=== PATIENT | male | born 1955 | race American Indian/Alaskan Native ===

== ENCOUNTER 2021-08-02 00:19 | Inpatient (IN) | payer BC ==
--- NOTE | 2021-08-02 00:30 | Emergency Department Report ---
HPI - General Time Seen by Provider: 08/02/21 00:21 - [facility] HPI: Room 20 The patient is a 66-year-old male present with a chief complaint of shortness of breath. Per EMS they received a call for difficulty breathing. Upon their arrival patient was awake and exhibiting increased work of breathing. While with EMS they report the patient lost his pulse/went to respiratory arrest and ACLS protocols were initiated. EMS states he was not on the monitor when he lost his pulse was original rhythm was unknown. Per EMS 2 rounds of CPR were performed with return of spontaneous circulation. Patient initially had a Loco airway in place but upon regaining his pulse this was removed. Upon arrival to the ED the patient is diaphoretic but answering questions appropriately satting 97% with supplemental O2. Patient denied ever having chest pain states he just felt short of breath. The patient's reported the patient has been coughing for the past few days. The patient states he has been vaccinated against Covid receiving 2 doses ED Past Medical Hx - Past Medical History Hx Hypertension: Yes Hx Asthma: Yes - Surgical History Past Surgical History?: No - Family History Family history: no significant - Social History Smoking Status: Never Smoker Substance Use Type: None (Denies illicit drug use), Alcohol ED Review of Systems ROS: Stated complaint: CARDIAC ARREST Other details as noted in HPI Constitutional: denies: fever Eyes: denies: eye pain ENT: denies: throat pain Respiratory: cough, shortness of breath Cardiovascular: denies: chest pain Endocrine: no symptoms reported Gastrointestinal: denies: abdominal pain Genitourinary: denies: dysuria Musculoskeletal: denies: back pain Neurological: denies: headache Physical Exam - Physical Exam Physical Exam: GENERAL: The patient is well-developed well-nourished male diaphoretic on stretcher. [] HEENT: Normocephalic. Atraumatic. Extraocular motions are intact. Patient has moist mucous membranes. NECK: Supple. Trachea midline CHEST/LUNGS: Diffuse wheezing. There is no respiratory distress noted. HEART/CARDIOVASCULAR: Regular. There is no tachycardia. There is no gallop rub or murmur. ABDOMEN: Abdomen is soft, nontender. Patient has normal bowel sounds. There is no abdominal distention. SKIN: There is no rash. There is no edema. There is diaphoresis. NEURO: The patient is awake, alert, and oriented. The patient is cooperative. The patient has no focal neurologic deficits. The patient has normal speech. GCS 15 MUSCULOSKELETAL: There is no evidence of acute injury. ED Medical Decision Making - Lab Data Result diagrams: 08/02/21 00:35 08/02/21 00:35 Laboratory Tests 08/02/21 08/02/21 08/02/21 00:35 00:35 00:35 WBC 7.5 RBC 5.59 H Hgb 14.5 Hct 46.4 H MCV 83 L MCH 26 L MCHC 31 L RDW 16.0 H Plt Count 151 Lymph % (Auto) Mat Cutter Seg Neutrophils % Mat Cutter ABG pH ABG pCO2 ABG pO2 ABG HCO3 ABG O2 Saturation ABG O2 Content ABG Base Excess ABG Hemoglobin ABG Carboxyhemoglobin ABG Methemoglobin Oxyhemoglobin FiO2 Sodium 141 Potassium 3.9 Chloride 103.4 Carbon Dioxide 18 L Anion Gap 24 BUN 18 Creatinine 1.7 H Estimated GFR 49 BUN/Creatinine Ratio 11 Glucose 247 H Lactic Acid 3.40 H* Calcium 8.4 Total Creatine Kinase 587 H CK-MB (CK-2) 4.4 H CK-MB (CK-2) Rel Index 0.7 Troponin T < 0.010 NT-Pro-B Natriuret Pep 219.9 Urine Opiates Screen Urine Methadone Screen Ur Barbiturates Screen Ur Phencyclidine Scrn Ur Amphetamines Screen U Benzodiazepines Scrn Urine Cocaine Screen U Marijuana (THC) Screen Drugs of Abuse Note 08/02/21 08/02/21 00:40 Unknown WBC RBC Hgb Hct MCV MCH MCHC RDW Plt Count Lymph % (Auto) Seg Neutrophils % ABG pH 7.272 L ABG pCO2 50.8 ABG pO2 174.2 H ABG HCO3 22.9 ABG O2 Saturation 99.0 ABG O2 Content 20.4 ABG Base Excess -4.4 L ABG Hemoglobin 14.7 ABG Carboxyhemoglobin 1.0 ABG Methemoglobin 0.5 Oxyhemoglobin 97.5 FiO2 36 Sodium Potassium Chloride Carbon Dioxide Anion Gap BUN Creatinine Estimated GFR BUN/Creatinine Ratio Glucose Lactic Acid Calcium Total Creatine Kinase CK-MB (CK-2) CK-MB (CK-2) Rel Index Troponin T NT-Pro-B Natriuret Pep Urine Opiates Screen Presumptive positive Urine Methadone Screen Presumptive negative Ur Barbiturates Screen Presumptive negative Ur Phencyclidine Scrn Presumptive negative Ur Amphetamines Screen Presumptive negative U Benzodiazepines Scrn Presumptive negative Urine Cocaine Screen Presumptive negative U Marijuana (THC) Screen Presumptive negative Drugs of Abuse Note Disclamer - EKG Data -: EKG Interpreted by Me EKG shows normal: sinus rhythm Rate: tachycardia (103 beats per) - EKG Data When compared to previous EKG there are: previous EKG unavailable Interpretation: other (No ischemic changes seen) - Radiology Data Radiology results: report reviewed (Chest X), image reviewed (Chest x-ray) interpreted by me: Chest x-ray-no definite focal infiltrates, no pneumothorax [facility] [address] [place] [address] XRay Report Signed Patient: ANICETO FRANCO MR#: [id number] : 1955 Acct:[id number] Age/Sex: 66 / M ADM Date: 08/02/21 Loc: ED Attending Dr: Ordering Physician: APPLE ALLEN MD Date of Service: 08/02/21 Procedure(s): XR chest 1V ap Accession Number(s): [id number] cc: APPLE ALLEN MD Fluoro Time In Minutes: CHEST 1 VIEW INDICATION / CLINICAL INFORMATION: Shortness of breath. COMPARISON: Chest x-ray 01/10/2011 FINDINGS: SUPPORT DEVICES: None. HEART / MEDIASTINUM: No significant abnormality. LUNGS / PLEURA: No significant pulmonary or pleural abnormality. No pneumothorax. ADDITIONAL FINDINGS: No significant additional findings. IMPRESSION: 1. No active cardiopulmonary disease. Signer Name: Elisha Pascal II, MD Signed: 08/02/2021 1:10 AM Workstation Name: [id number] Transcribed By: PATY Dictated By: ELISHA PASCAL II, MD Electronically Authenticated By: ELISHA PASCAL II, MD Signed Date/Time: 08/02/21109 DD/ 8 TD/TT: - Differential Diagnosis Asthma exacerbation, respiratory arrest Critical care attestation.: If time is entered above; I have spent that time in minutes in the direct care of this critically ill patient, excluding procedure time. ED Disposition Clinical Impression: Acute asthma exacerbation, Respiratory arrest Disposition: ADMITTED INPATIENT Is pt being admited?: Yes Does the pt Need Aspirin: Yes Condition: Fair Time of Disposition: 02:06 (Hospitalist called (Dr Hollingsworth))
[2021-08-02] MEDS ORDERED: IPRATROPIUM 0.02% NEBU 2.5 ML IH ONE ×2 (00:35→01:21)
[2021-08-02] MEDS ORDERED: ALBUTEROL 2.5 MG/3 ML NEBU IH ONE ×2 (00:35→01:21)
[2021-08-02 00:56] LABS: ABG Base Excess -4.4 mmol/L (-2.0-3.0); ABG HCO3 22.9 mmol/L (20.0-26.0); ABG Methemoglobin 0.5 % (0.0-1.5); ABG PCO2 50.8 mm Hg; ABG PH 7.272 pH Units (7.350-7.450); ABG PO2 174.2 mm Hg (80.0-90.0)
[2021-08-02 01:08] LABS: Amphetamine Screen,Urine PRESUMPTIVE NEGATIVE; Benzodiazepines Screen,Urine PRESUMPTIVE NEGATIVE; Cannabinoid Screen,Urine PRESUMPTIVE NEGATIVE; Cocaine Screen,Urine PRESUMPTIVE NEGATIVE; Methadone Screen,Urine PRESUMPTIVE NEGATIVE; Opiate Screen,Urine PRESUMPTIVE POSITIVE
[2021-08-02 01:12] LABS: Creatine Kinase MB 4.4 ng/mL (0.0-4.0)
[2021-08-02 01:13] LABS: BUN/Creatinine Ratio 11; Blood Urea Nitrogen 18 mg/dL (9-20); Calcium 8.4 mg/dL (8.4-10.2); Hemolysis Index 10
--- NOTE | 2021-08-02 01:14 | XRay Report ---
CHEST 1 VIEW INDICATION / CLINICAL INFORMATION: Shortness of breath. COMPARISON: Chest x-ray 01/10/2011 FINDINGS: SUPPORT DEVICES: None. HEART / MEDIASTINUM: No significant abnormality. LUNGS / PLEURA: No significant pulmonary or pleural abnormality. No pneumothorax. ADDITIONAL FINDINGS: No significant additional findings. IMPRESSION: 1. No active cardiopulmonary disease. Signer Name: Omi Blevins II, MD Signed: 08/02/2021 1:10 AM Workstation Name: [id number]
[2021-08-02 01:27] LABS: Hematocrit 46.4 % (35.5-45.6); Hemoglobin 14.5 gm/dl (11.8-15.2); Mean Corpuscular HGB Conc 31 % (32-34); Mean Corpuscular Volume 83 fl (84-94); Platelet Count 151 K/mm3 (140-440); Red Blood Count 5.59 M/mm3 (3.65-5.03)
[2021-08-02 03:02] LABS: Anisocytosis RARE; Basophils % (Manual) 0 % (0.0-1.8); Eosinophils % (Manual) 0 % (0.0-4.3); Hypochromasia 1+; Total Cells Counted 100
[2021-08-02] MEDS ORDERED: ONDANSETRON 4 MG/2 ML INJ IV PRN (03:36)
[2021-08-02] MEDS ORDERED: MORPHINE 4 MG/1 ML INJ IV PRN ×2 (03:36→03:46)
[2021-08-02] MEDS ORDERED: ALBUTEROL 2.5 MG/3 ML NEBU IH PRN (03:36)
[2021-08-02] MEDS ORDERED: MORPHINE 2 MG/1 ML INJ IV PRN ×2 (03:36→03:46)
[2021-08-02] MEDS ORDERED: ACETAMINOPHEN 325 MG TAB PO PRN ×2 (03:36→03:46)
[2021-08-02] MEDS ORDERED: MAGNESIUM HYDROXIDE (MOM) ORAL LIQD UDC PO PRN (03:36)
--- NOTE | 2021-08-02 03:55 | History and Physical Report ---
History of Present Illness Date of examination: 08/02/21 Date of admission: 08/02/2021 Chief complaint: Shortness of Breath History of present illness: 66-year-old male with known history of asthma presenting to the emergency room today complaining of sudden onset of shortness of breath. Upon arrival of EMS patient was said to be having increased work of breathing. In route to the hospital was said to have gone into respiratory arrest and also lost his pulse whereby ACLS protocols were commenced with return of some spontaneous circulation after 2 rounds of CPR. Upon arrival in the emergency room patient was found to be diaphoretic and still having increased work of breathing. He was subsequently placed on BiPAP.. He denies any fever or chills, no chest pain, no headache or dizziness . Denies any sick contacts and no recent travel. Denies any contact with anyone with COVID-19. Patient has had 2 doses of COVID-19 v vaccine. According to , patient has had some cough over the past few days. Work-up in the emergency room today, labs are significant for lactic acid of 3.8. Creatinine kinase of 587, creatinine of 1.7. CO2 of 18. Chest x-ray shows no acute cardiopulmonary disease. Patient being admitted for asthma exacerbation, lactic acidosis and a brief period Of cardiopulmonary arrest. Past History Past Medical History: other (Asthma) Past Surgical History: No surgical history Social history: alcohol abuse Family history: no significant family history Medications and Allergies Allergies Allergy/AdvReac Type Severity Reaction Status Date / Time Penicillins Allergy Unknown Verified 08/02/21 00:27 Home Medications Medication Instructions Recorded Confirmed Last Taken Type Amlodipine Besylate [Norvasc] 10 mg PO QDAY 08/02/21 08/02/21 Unknown History Atorvastatin Calcium [Lipitor] 20 mg PO QDAY 08/02/21 08/02/21 Unknown History Doxazosin Mesylate [Cardura] 2 mg PO QDAY 08/02/21 08/02/21 Unknown History Losartan Potassium 100 mg PO QDAY 08/02/21 08/02/21 Unknown History Active Meds: Active Medications Acetaminophen (Acetaminophen 325 Mg Tab) 650 mg PO Q4H PRN PRN Reason: Pain MILD(1-3)/Fever >100.5/NIETO Acetaminophen (Acetaminophen 325 Mg Tab) 650 mg PO Q4H PRN PRN Reason: Pain MILD(1-3)/Fever >100.5/NIETO Albuterol (Albuterol 2.5 Mg/3 Ml Nebu) 2.5 mg IH Q3HRT PRN PRN Reason: Shortness Of Breath Albuterol/Ipratropium (Ipratropium/Albuterol Sulfate 3 Ml Ampul.Neb) 1 ampul IH Q6HRT LISA Magnesium Hydroxide (Magnesium Hydroxide (Mom) Oral Liqd Udc) 30 ml PO Q4H PRN PRN Reason: Constipation Methylprednisolone Sodium Succinate (Methylprednisolone Sod Succinate 40 Mg/1 Ml Inj) 40 mg IV Q8HR LISA Morphine Sulfate (Morphine 2 Mg/1 Ml Inj) 2 mg IV Q4H PRN PRN Reason: Pain, Moderate (4-6) Morphine Sulfate (Morphine 4 Mg/1 Ml Inj) 4 mg IV Q4H PRN PRN Reason: Pain , Severe (7-10) Morphine Sulfate (Morphine 2 Mg/1 Ml Inj) 2 mg IV Q4H PRN PRN Reason: Pain, Moderate (4-6) Morphine Sulfate (Morphine 4 Mg/1 Ml Inj) 4 mg IV Q4H PRN PRN Reason: Pain , Severe (7-10) Ondansetron HCl (Ondansetron 4 Mg/2 Ml Inj) 4 mg IV Q8H PRN PRN Reason: Nausea And Vomiting Sodium Chloride (Sodium Chloride 0.9% 10 Ml Flush Syringe) 10 ml IV BID LISA Sodium Chloride (Sodium Chloride 0.9% 10 Ml Flush Syringe) 10 ml IV PRN PRN PRN Reason: LINE FLUSH Review of Systems Constitutional: no fever, no chills Ears, nose, mouth and throat: no nasal congestion, no sore throat Cardiovascular: no chest pain, no palpitations Respiratory: cough, shortness of breath, wheezing Gastrointestinal: no abdominal pain, no nausea, no vomiting, no diarrhea Genitourinary Male: no dysuria, no hematuria, no flank pain Musculoskeletal: no neck pain, no low back pain Integumentary: no rash, no pruritis Neurological: no headaches, no confusion Psychiatric: no anxiety, no depression Endocrine: no polyphagia, no polydipsia, no polyuria, no nocturia Exam - Constitutional Vitals: Temp Pulse Resp BP Pulse Ox 97.4 F L 78 17 129/90 100 08/02/21 00:25 08/02/21 03:00 08/02/21 03:00 08/02/21 03:00 08/02/21 03:00 General appearance: Present: mild distress, well-nourished - EENT Eyes: Present: PERRL, EOM intact. Absent: scleral icterus ENT: hearing intact, clear oral mucosa, dentition normal - Neck Neck: Present: supple, normal ROM - Respiratory Respiratory effort: normal Respiratory: bilateral: wheezing - Cardiovascular Rhythm: regular Heart Sounds: Present: S1 & S2. Absent: gallop, systolic murmur, diastolic murmur, rub, click - Extremities Extremities: no ischemia, pulses intact, pulses symmetrical, No edema, normal temperature, Full ROM Peripheral Pulses: within normal limits - Abdominal General gastrointestinal: Present: soft, non-tender, non-distended, normal bowel sounds. Absent: mass - Integumentary Integumentary: Present: clear, warm, dry, normal turgor. Absent: rash - Musculoskeletal Musculoskeletal: strength equal bilaterally - Psychiatric Psychiatric: appropriate mood/affect, intact judgment & insight, memory intact - Neurologic Neurologic: CNII-XII intact, no focal deficits, moves all extremities HEART Score - HEART Score Troponin: Troponin T < 0.010 ng/mL (0.00-0.029) 08/02/21 00:35 Results - Labs CBC & Chem 7: 08/02/21 00:35 08/02/21 00:35 Labs: Abnormal lab results 08/02/21 08/02/21 08/02/21 Range/Units 00:35 00:35 00:35 RBC 5.59 H (3.65-5.03) M/mm3 Hct 46.4 H (35.5-45.6) % MCV 83 L (84-94) fl MCH 26 L (28-32) pg MCHC 31 L (32-34) % RDW 16.0 H (13.2-15.2) % Lymphocytes % (Manual) 50.0 H (13.4-35.0) % Monocytes % (Manual) 9.0 H (0.0-7.3) % ABG pH (7.350-7.450) pH Units ABG pO2 (80.0-90.0) mm Hg ABG Base Excess (-2.0-3.0) mmol/L Carbon Dioxide 18 L (22-30) mmol/L Creatinine 1.7 H (0.8-1.3) mg/dL Glucose 247 H (75-100) mg/dL Lactic Acid 3.40 H* (0.7-2.0) mmol/L Total Creatine Kinase 587 H (55-170) units/L CK-MB (CK-2) 4.4 H (0.0-4.0) ng/mL 08/02/21 08/02/21 Range/Units 00:40 01:26 RBC (3.65-5.03) M/mm3 Hct (35.5-45.6) % MCV (84-94) fl MCH (28-32) pg MCHC (32-34) % RDW (13.2-15.2) % Lymphocytes % (Manual) (13.4-35.0) % Monocytes % (Manual) (0.0-7.3) % ABG pH 7.272 L (7.350-7.450) pH Units ABG pO2 174.2 H (80.0-90.0) mm Hg ABG Base Excess -4.4 L (-2.0-3.0) mmol/L Carbon Dioxide (22-30) mmol/L Creatinine (0.8-1.3) mg/dL Glucose (75-100) mg/dL Lactic Acid 3.00 H* (0.7-2.0) mmol/L Total Creatine Kinase (55-170) units/L CK-MB (CK-2) (0.0-4.0) ng/mL Assessment and Plan - Patient Problems (1) Acute asthma exacerbation Current Visit: Yes Status: Acute Plan to address problem: Patient admitted and placed on nebulizing treatments. Will also place on IV steroid. Consult placed to manager fire for further evaluation and recommendations. (2) Respiratory arrest Current Visit: Yes Status: Acute Plan to address problem: Possibly secondary to the COPD exacerbation. Patient was successfully resuscitated. Will monitor closely in T intensive care unit. (3) Lactic acidosis Current Visit: Yes Status: Acute Plan to address problem: Possibly secondary to the cardiopulmonary arrest. Patient placed on IV fluid. Will monitor chemistry. (4) Elevated creatine kinase Current Visit: Yes Status: Acute Plan to address problem: We will continue on IV fluid and monitor CK level. Patient had received 2 rounds of CPR prior to arrival in the emergency room today. (5) DVT prophylaxis Current Visit: Yes Status: Acute Plan to address problem: Patient placed on subcutaneous heparin. (6) Full code status Current Visit: Yes Status: Acute Plan to address problem: Patient is full code.
[2021-08-02] MEDS: methylPREDNISolone Sod Succinate 40 MG/1 ML INJ IV SCH ×3 (05:58→22:12)
[2021-08-02] MEDS: SODIUM CHLORIDE 0.9% 1000 ML 1,000 ML IV SCH ×4 (05:58→22:06)
[2021-08-02] MEDS ORDERED: IPRATROPIUM/ALBUTEROL SULFATE 3 ML AMPUL.NEB IH SCH (08:00)
[2021-08-02] MEDS: IPRATROPIUM/ALBUTEROL SULFATE 3 ML AMPUL.NEB IH SCH ×3 (08:10→23:49)
[2021-08-02] MEDS ORDERED: SODIUM CHLORIDE 0.9% 500 ML 500 ML IV ONE (14:19)
[2021-08-02] MEDS ORDERED: ALBUTEROL 8.5 GM MDI INHALATION IH PRN (14:29)
[2021-08-02] MEDS ORDERED: hydrALAZINE 20 MG/1 ML INJ IV PRN (14:30)
--- NOTE | 2021-08-02 14:33 | Event Note ---
Date: 08/02/21 Patient was seen this morning and reevaluated later this afternoon. In a.m. he remained on BiPAP with bilateral wheezing. This afternoon he has been off the BiPAP on 3 L of oxygen nasal cannula although still with some wheezing but much improved breathing pattern. is at the bedside. I did discuss with the family and discussed expectations. I think is reasonable to downgrade him to telemetry you need to remain with BiPAP at bedside for as needed use at nighttime. Lactic acidosis improving although CPK did go up some more possible evidence of rhabdomyolysis that may have been caused by the hypoxia. We will give 500 cc bolus of fluid and up his normal saline to 150 cc an hour. We will need to monitor for possible fluid overload. Repeat CPK every 8 hours starting from 4 PM today. Will restart home medications including blood pressure medications. Will hold losartan due to acute kidney injury. If renal function is unimproved in a.m. will recommend nephrology consultation
[2021-08-02] MEDS ORDERED: amLODIPine 5 MG TAB PO SCH (15:00)
--- NOTE | 2021-08-02 15:51 | Consultation ---
History of Present Illness Consult date: 08/02/21 Requesting physician: EDDIE CARRASQUILLO Reason for consult: asthma (AE-Asthma) History of present illness: PULMONARY/CCM CONSULT NOTE (Full dictation # [id number]) Please see dictated notes for full details Past History Past Medical History: other (Asthma) Past Surgical History: No surgical history Social history: alcohol abuse Family history: no significant family history Medications and Allergies Allergies Allergy/AdvReac Type Severity Reaction Status Date / Time Penicillins Allergy Unknown Verified 08/02/21 00:27 Home Medications Medication Instructions Recorded Confirmed Last Taken Type Albuterol Mdi (or & Nicu Only) 2 puff IH QID PRN 08/02/21 08/02/21 Unknown History [ProAir HFA Inhaler] Amlodipine Besylate [Norvasc] 10 mg PO QDAY 08/02/21 08/02/21 Unknown History Atorvastatin Calcium [Lipitor] 20 mg PO QDAY 08/02/21 08/02/21 Unknown History Doxazosin Mesylate [Cardura] 2 mg PO QDAY 08/02/21 08/02/21 Unknown History Fluticasone [Flonase] 1 spray NS QDAY 08/02/21 08/02/21 Unknown History Losartan Potassium 100 mg PO QDAY 08/02/21 08/02/21 Unknown History Multivit-Min/Folic/Vit K/Lycop 1 each PO QDAY 08/02/21 08/02/21 Unknown History [Men's 50 Plus Multivitamin Tab] Active Meds: Active Medications Acetaminophen (Acetaminophen 325 Mg Tab) 650 mg PO Q4H PRN PRN Reason: Pain MILD(1-3)/Fever >100.5/NIETO Albuterol (Albuterol 2.5 Mg/3 Ml Nebu) 2.5 mg IH Q3HRT PRN PRN Reason: Shortness Of Breath Albuterol/Ipratropium (Ipratropium/Albuterol Sulfate 3 Ml Ampul.Neb) 1 ampul IH Q6HRT [facility] Last Admin: 08/02/21 15:38 Dose: 1 ampul Amlodipine Besylate (Amlodipine 5 Mg Tab) 10 mg PO QDAY [facility] Last Admin: 08/02/21 15:41 Dose: 10 mg Atorvastatin Calcium (Atorvastatin 20 Mg Tab) 20 mg PO QHS [facility] Doxazosin Mesylate (Doxazosin 1 Mg Tab) 2 mg PO QDAY [facility] Fluticasone Propionate (Fluticasone Propionate Nasal Dulzura 16 Gm) 50 mcg NS QDAY LISA Hydralazine HCl (Hydralazine 20 Mg/1 Ml Inj) 10 mg IV Q4HR PRN PRN Reason: Hypertension Sodium Chloride (Nacl 0.9% 1000 Ml) 1,000 mls @ 150 mls/hr IV DIRECT LISA Last Admin: 08/02/21 14:47 Dose: 150 mls/hr Levofloxacin/Dextrose (Levaquin 750mg/150ml) 750 mg in 150 mls @ 100 mls/hr IV Q24H [facility]; Protocol Last Admin: 08/02/21 07:31 Dose: 100 mls/hr Magnesium Hydroxide (Magnesium Hydroxide (Mom) Oral Liqd Udc) 30 ml PO Q4H PRN PRN Reason: Constipation Methylprednisolone Sodium Succinate (Methylprednisolone Sod Succinate 40 Mg/1 Ml Inj) 40 mg IV Q8HR [facility] Last Admin: 08/02/21 13:49 Dose: 40 mg Morphine Sulfate (Morphine 2 Mg/1 Ml Inj) 2 mg IV Q4H PRN PRN Reason: Pain, Moderate (4-6) Morphine Sulfate (Morphine 4 Mg/1 Ml Inj) 4 mg IV Q4H PRN PRN Reason: Pain , Severe (7-10) Ondansetron HCl (Ondansetron 4 Mg/2 Ml Inj) 4 mg IV Q8H PRN PRN Reason: Nausea And Vomiting Sodium Chloride (Sodium Chloride 0.9% 10 Ml Flush Syringe) 10 ml IV BID [facility] Last Admin: 08/02/21 10:26 Dose: 10 ml Sodium Chloride (Sodium Chloride 0.9% 10 Ml Flush Syringe) 10 ml IV PRN PRN PRN Reason: LINE FLUSH Physical Examination Vital signs: Vital Signs Pulse Resp Pulse Ox 106 H 30 H 100 08/02/21 00:23 08/02/21 00:23 08/02/21 00:23 Results - Laboratory Findings CBC and BMP: 08/02/21 00:35 08/02/21 00:35 ABG ABG pH 7.272 pH Units (7.350-7.450) L 08/02/21 00:40 ABG pCO2 50.8 mm Hg 08/02/21 00:40 ABG pO2 174.2 mm Hg (80.0-90.0) H 08/02/21 00:40 ABG O2 Saturation 99.0 % (95.0-99.0) 08/02/21 00:40 Abnormal lab findings: Abnormal Labs 08/02/21 08/02/21 08/02/21 00:35 00:35 00:35 RBC 5.59 H Hct 46.4 H MCV 83 L MCH 26 L MCHC 31 L RDW 16.0 H Lymphocytes % (Manual) 50.0 H Monocytes % (Manual) 9.0 H ABG pH ABG pO2 ABG Base Excess Carbon Dioxide 18 L Creatinine 1.7 H Glucose 247 H Lactic Acid 3.40 H* Total Creatine Kinase 587 H CK-MB (CK-2) 4.4 H 08/02/21 08/02/21 08/02/21 00:40 01:26 02:53 RBC Hct MCV MCH MCHC RDW Lymphocytes % (Manual) Monocytes % (Manual) ABG pH 7.272 L ABG pO2 174.2 H ABG Base Excess -4.4 L Carbon Dioxide Creatinine Glucose Lactic Acid 3.00 H* 3.80 H* Total Creatine Kinase CK-MB (CK-2) 08/02/21 08/02/21 08/02/21 06:40 12:22 12:22 RBC Hct MCV MCH MCHC RDW Lymphocytes % (Manual) Monocytes % (Manual) ABG pH ABG pO2 ABG Base Excess Carbon Dioxide Creatinine Glucose Lactic Acid 2.40 H* 2.80 H* Total Creatine Kinase 1018 H CK-MB (CK-2)
--- NOTE | 2021-08-02 19:00 | Consultation ---
History of Present Illness Consult date: 08/02/21 Consult reason: shortness of breath History of present illness: The patient is a 66-year-old man with a history of asthma, chronic hypertension and diabetes. No prior cardiac history. He presented to the hospital following what was described as a pulmonary arrest. Apparently he had developed acute asthma with wheezing, was markedly short of breath and while attempting to use his home nebulizer treatment, he was observed by family members to have passed out. research biostatistician were called and did brief CPR. By the time of arrival to the emergency room he was awake, but required several hours of BiPAP and intensive pulmonary bronchodilator therapy. Patient currently feels much better, breathing comfortably on room air in the emergency room. He describes no chest pain, no palpitations, no recent exertional intolerance. Laboratory exam shows an elevated CPK up to 1000, consistent with rhabdomyolysis. The troponin levels x2 were normal. ECG showed a sinus tachycardia at [address] changes. Chest x-ray showed a normal- sized cardiac silhouette and clear lungs. Past History Past Medical History: diabetes, hypertension, other (Asthma) Past Surgical History: No surgical history Social history: alcohol abuse Family history: no significant family history Medications and Allergies Allergies Allergy/AdvReac Type Severity Reaction Status Date / Time Penicillins Allergy Unknown Verified 08/02/21 00:27 Home Medications Medication Instructions Recorded Confirmed Last Taken Type Albuterol Mdi (or & Nicu Only) 2 puff IH QID PRN 08/02/21 08/02/21 Unknown History [ProAir HFA Inhaler] Amlodipine Besylate [Norvasc] 10 mg PO QDAY 08/02/21 08/02/21 Unknown History Atorvastatin Calcium [Lipitor] 20 mg PO QDAY 08/02/21 08/02/21 Unknown History Doxazosin Mesylate [Cardura] 2 mg PO QDAY 08/02/21 08/02/21 Unknown History Fluticasone [Flonase] 1 spray NS QDAY 08/02/21 08/02/21 Unknown History Losartan Potassium 100 mg PO QDAY 08/02/21 08/02/21 Unknown History Multivit-Min/Folic/Vit K/Lycop 1 each PO QDAY 08/02/21 08/02/21 Unknown History [Men's 50 Plus Multivitamin Tab] Active Meds: Active Medications Acetaminophen (Acetaminophen 325 Mg Tab) 650 mg PO Q4H PRN PRN Reason: Pain MILD(1-3)/Fever >100.5/NIETO Albuterol (Albuterol 2.5 Mg/3 Ml Nebu) 2.5 mg IH Q3HRT PRN PRN Reason: Shortness Of Breath Albuterol/Ipratropium (Ipratropium/Albuterol Sulfate 3 Ml Ampul.Neb) 1 ampul IH Q6HRT [facility] Last Admin: 08/02/21 15:38 Dose: 1 ampul Amlodipine Besylate (Amlodipine 5 Mg Tab) 10 mg PO QDAY [facility] Last Admin: 08/02/21 15:41 Dose: 10 mg Atorvastatin Calcium (Atorvastatin 20 Mg Tab) 20 mg PO QHS [facility] Doxazosin Mesylate (Doxazosin 1 Mg Tab) 2 mg PO QDAY [facility] Famotidine (Famotidine 20 Mg Tab) 20 mg PO QHS [facility] Fluticasone Propionate (Fluticasone Propionate Nasal [place] 16 Gm) 50 mcg NS QDAY [facility] Heparin Sodium (Porcine) (Heparin 5,000 Unit/1 Ml Vial) 5,000 unit SUB-Q Q12HR [facility] Hydralazine HCl (Hydralazine 20 Mg/1 Ml Inj) 10 mg IV Q4HR PRN PRN Reason: Hypertension Sodium Chloride (Nacl 0.9% 1000 Ml) 1,000 mls @ 150 mls/hr IV DIRECT [facility] Last Admin: 08/02/21 14:47 Dose: 150 mls/hr Magnesium Hydroxide (Magnesium Hydroxide (Mom) Oral Liqd Udc) 30 ml PO Q4H PRN PRN Reason: Constipation Methylprednisolone Sodium Succinate (Methylprednisolone Sod Succinate 40 Mg/1 Ml Inj) 40 mg IV Q8HR [facility] Last Admin: 08/02/21 13:49 Dose: 40 mg Morphine Sulfate (Morphine 2 Mg/1 Ml Inj) 2 mg IV Q4H PRN PRN Reason: Pain, Moderate (4-6) Morphine Sulfate (Morphine 4 Mg/1 Ml Inj) 4 mg IV Q4H PRN PRN Reason: Pain , Severe (7-10) Ondansetron HCl (Ondansetron 4 Mg/2 Ml Inj) 4 mg IV Q8H PRN PRN Reason: Nausea And Vomiting Sodium Chloride (Sodium Chloride 0.9% 10 Ml Flush Syringe) 10 ml IV BID [facility] Last Admin: 08/02/21 10:26 Dose: 10 ml Sodium Chloride (Sodium Chloride 0.9% 10 Ml Flush Syringe) 10 ml IV PRN PRN PRN Reason: LINE FLUSH Review of Systems Cardiovascular: syncope, shortness of breath, no chest pain, no orthopnea, no palpitations, no rapid/irregular heart beat, no edema, no lightheadedness Physical Examination Vital Signs Pulse Resp Pulse Ox 106 H 30 H 100 08/02/21 00:23 08/02/21 00:23 08/02/21 00:23 General appearance: no acute distress HEENT: Positive: PERRL Neck: Positive: neck supple Cardiac: Positive: Reg Rate and Rhythm Lungs: Positive: Decreased Breath Sounds Neuro: Positive: Grossly Intact Abdomen: Positive: Soft Male genitourinary: Positive: deferred Skin: Positive: Clear Extremities: Absent: edema Results 08/02/21 00:35 08/02/21 00:35 Cardiac Enzymes 08/02/21 Range/Units 00:35 CK-MB (CK-2) 4.4 H (0.0-4.0) ng/mL CBC 08/02/21 Range/Units 00:35 WBC 7.5 (4.5-11.0) K/mm3 RBC 5.59 H (3.65-5.03) M/mm3 Hgb 14.5 (11.8-15.2) gm/dl Hct 46.4 H (35.5-45.6) % Plt Count 151 (140-440) K/mm3 Comprehensive Metabolic Panel 08/02/21 Range/Units 00:35 Sodium 141 (137-145) mmol/L Potassium 3.9 (3.6-5.0) mmol/L Chloride 103.4 (98-107) mmol/L Carbon Dioxide 18 L (22-30) mmol/L BUN 18 (9-20) mg/dL Creatinine 1.7 H (0.8-1.3) mg/dL Glucose 247 H (75-100) mg/dL Calcium 8.4 (8.4-10.2) mg/dL EKG interpretations - Telemetry EKG Rhythm: Sinus Tachycardia (Rate 103, nonspecific ST changes) Assessment and Plan - Patient Problems (1) Acute asthma exacerbation Current Visit: Yes Status: Acute Plan to address problem: Patient presented with acute asthma exacerbation which was followed by transient pulmonary arrest, now looks and feels better after several hours of BiPAP therapy. No cardiac complaints, ECG shows no acute ischemic changes, troponin levels negative x2. We will await echocardiogram ordered for left ventricular function assessment, otherwise conservative cardiac management. Eventually we will recommend noninvasive cardiac ischemia assessment which may be done as an outpatient after pulmonary status is optimally managed.
[2021-08-02] MEDS: HEPARIN 5,000 UNIT/1 ML VIAL SUB-Q SCH (22:06)
[2021-08-02] MEDS: FAMOTIDINE 20 MG TAB PO SCH (22:07)
[2021-08-03] MEDS: IPRATROPIUM/ALBUTEROL SULFATE 3 ML AMPUL.NEB IH SCH ×4 (01:14→20:59)
--- NOTE | 2021-08-03 03:08 | Consultation ---
DATE OF CONSULTATION: 08/02/2021 PULMONARY CONSULTATION NOTE CONSULTING PHYSICIAN: Dr. Hollingsworth. REASON FOR CONSULTATION: Acute asthma exacerbation. CHIEF COMPLAINT AND HISTORY OF PRESENT ILLNESS: The patient is a now 66-year-old obese male with a past medical history significant for asthma, sounds like mild intermittent asthma. He states the last time he was in the hospital was about 2 years ago. He uses rescue inhalers, does not have nighttime awakenings, has not been having to use his rescue inhalers. Recently, he said that he had been dealing with a sinus infection with headaches, stuffy nose. This had been going on for a few days. On the day of presentation, he came in with sudden shortness of breath. He developed increased work of breathing. He was wheezing. He reportedly had some kind of respiratory arrest en route and he reportedly lost his pulse. ACLS protocol was started. There was return of spontaneous circulation after 2 rounds of CPR. In the Emergency Room, he was diaphoretic. He still had increased work of breathing. He denied any contact with anyone with known COVID-19. He has had his 2 doses of COVID-19 vaccination. In the Emergency Room, he had mild increase in his serum creatine kinase. He was started on bilevel positive airway pressure ventilation therapy with improvement in symptoms. Given systemic steroids, bronchodilators, we are asked to assist with management. When I stopped by to see him, he was resting in bed, lying in bed, feeling much better. He was off the BiPAP machine. He was on supplemental oxygen about 2 liters nasal cannula. He did not have audible wheezing from a fall, but he did still have some wheezing on auscultation. There was no use of accessory muscles of respiration. His was in the room at that time. He denies a history of tobacco use or abuse whatsoever. He denies any new-onset leg pain or swelling, either unilaterally or bilaterally. He denies any history of intubation as a result of an asthma attack. He thinks the trigger as has been in the past was the sinus infection. This really is as much of the history of presentation as I have. PAST MEDICAL HISTORY: 1. Asthma. 2. Obesity. PAST SURGICAL HISTORY: Denies. MEDICATIONS: He was on at the time I stopped by to see him, according to the medication administration record included the following: Tylenol 650 mg p.o. q. 4 hours p.r.n. mild pain or fevers, albuterol nebulizer treatments 2.5 mg nebulized q. 3 hours p.r.n. shortness of breath, DuoNeb nebulizer treatment q. 6 hours scheduled, amlodipine 10 mg p.o. daily, Lipitor 20 mg p.o. at bedtime, Cardura 2 mg p.o. daily, Flonase 50 mcg daily each nostril p.r.n., hydralazine 10 mg IV q. 4 hours p.r.n. elevated blood pressures, Levaquin 750 mg IV daily, Solu-Medrol 40 mg IV q. 8 hours, morphine sulfate 2 mg IV q. 4 hours p.r.n. moderate pain and 4 mg IV q. 4 hours p.r.n. severe pain, Zofran 4 mg IV q. 8 hours p.r.n. nausea and vomiting. ALLERGIES: PENICILLINS, nature of this allergy is unknown. DIET: Obese gentleman. Denies acute weight loss or gain in the preceding few weeks to months. FAMILY AND SOCIAL HISTORY: Lives in the community. Denies tobacco use. There is a history of alcohol abuse according to the records. He denies illicit drug use or abuse. Family history is otherwise noncontributory. REVIEW OF SYSTEMS: No loss of consciousness. No new onset seizures. No new onset focal weakness. Denies gross hematochezia or melena. Denies gross hematuria or dysuria. No hematemesis, no hemoptysis. Denies a history of seizures. Denies polydipsia, polyuria. Complete 13-system review of system was obtained. Pertinent positives and/or negatives as in body of history above, otherwise they are noncontributory. PHYSICAL EXAMINATION: VITAL SIGNS: At presentation in the Emergency Room, vital signs, afebrile, temperature 97.4 degrees Fahrenheit, pulse of 106, respiratory rate of 30, blood pressure of 152/78, O2 sats on 100% inspired oxygen concentration at that time was not recorded. GENERAL: Elderly obese male. Normocephalic, atraumatic. Talking to me in full sentences, but with mildly increased respiratory effort at rest. HEAD, EYES, EARS, NOSE AND THROAT: Anicteric. No conjunctival erythema. Oropharynx was moist. NECK: No gross jugular venous distention, no thyromegaly. Grossly, there were no palpable lymph nodes in the supraclavicular or submandibular lymph node chains. LUNGS: Auscultation of both lung leyva significant for diminished bilateral breath sounds, prolonged expiratory phase with expiratory wheezing. HEART: Sounds 1 and 2 are heard at the time of my evaluation, regular rate and rhythm without overt rubs or murmurs. ABDOMEN: Soft, full, protuberant. Bowel sounds are positive, nontender. No palpable hepatosplenomegaly. EXTREMITIES: Without overt digital clubbing or cyanosis, no pedal edema. Pedal pulses are 2+ bilaterally. NEUROLOGIC: Pupils are equal, round, about 4 mm, reactive to light. Extraocular muscle movements are intact. He moves all 4 extremities spontaneously. SKIN: Normal turgor in the areas examined without overt cellulitis or rash. Please see the wound care nurses' notes for full description of his skin. PSYCHIATRIC: Mood was normal. Affect was appropriate. He had intact judgment and insight. LABORATORY DATA: From my review, white cell count 7500, hemoglobin ____, hematocrit 46.4, platelet count 151. No band forms on the manual differential. Arterial blood gas showed a pH of 7.27, pCO2 of 51, pO2 of 174 that was on 4 liters nasal cannula at presentation. Serum sodium 141, potassium 3.9, chloride 103, bicarbonate 18, BUN 18, creatinine 1.7, glucose was 247. Lactic acid level was 3.8, it is now down to 2.8 on the lactic acid level. CPK 587. It is up to 1018. BNP within normal limits. Urine drug screen presumptive positive for opiates, otherwise presumptive negative. RADIOGRAPHIC STUDIES: Chest x-ray was reviewed. I have also reviewed the radiologist's interpretation. I do agree slight increase in the intercostal spaces compatible with air trapping, but really otherwise no acute process. ASSESSMENT: 1. Acute hypoxemic respiratory failure. 2. Cardiac arrest with return of spontaneous circulation per history. 3. Acute asthma exacerbation. 4. Metabolic acidosis. 5. Lactic acidosis. 6. Acute kidney injury. 7. Elevated serum creatine kinase. 8. Obesity. PLAN: I will put him on IV fluids, gentle hydration. I will use normal saline running at about 75 mL per hour. I will actually use half NS run to about 75 mL per hour for 2 liters. I would repeat the lactic acid level in the morning. He will benefit from a Cardiology evaluation in this gentleman with reported cardiac arrest and elevated cardiac enzymes albeit a normal troponin. Oxygen will be weaned to keep sats greater than or equal to about 90%. Aspiration precautions will be maintained. I will start him on Brovana as well as Pulmicort, but continue the systemic steroids. I will reduce the frequency of the nebulizer treatments to t.i.d. We will repeat BMP in the morning and an arterial blood gas to evaluate his ventilation as well as his lactic acidosis. Continued tobacco abstinence has been counseled. He will be started on GI prophylaxis as well as DVT prophylaxis. Flu and pneumonia vaccination will be addressed per protocol. I will be discontinuing the Levaquin. I see no acute indication for antibiotic therapy. Thank you very much for the consult. We will follow along with further recommendations as picture progresses/becomes clearer. He will be downgraded from the intensive care unit, but observe closely. He will need a telemetry bed. TID: [id number] RECEIPT: [id number] NIRU/TRELL/TOMAS
[2021-08-03] MEDS: methylPREDNISolone Sod Succinate 40 MG/1 ML INJ IV SCH ×3 (05:49→22:14)
[2021-08-03 06:09] LABS: Calcium 8.7 mg/dL (8.4-10.2)
[2021-08-03 06:16] LABS: Hematocrit 41.4 % (35.5-45.6); Mean Corpuscular HGB Conc 31 % (32-34); Mean Corpuscular Volume 82 fl (84-94); Platelet Count 141 K/mm3 (140-440); Red Blood Count 5.05 M/mm3 (3.65-5.03); Red Cell Distribution Width 15.9 % (13.2-15.2)
[2021-08-03] MEDS: SODIUM CHLORIDE 0.9% 1000 ML 1,000 ML IV SCH ×3 (07:13→22:14)
[2021-08-03 07:43] LABS: Band Neutrophils # (Manual) 0.3 K/mm3; Basophils % (Manual) 0 % (0.0-1.8); Eosinophils % (Manual) 0 % (0.0-4.3); Total Cells Counted 100
[2021-08-03 07:44] LABS: Large Platelets Few; Platelet Estimate Cons; RBC Morphology Normal
--- NOTE | 2021-08-03 09:59 | Progress Note ---
Assessment and Plan Assessment and plan: --Acute on chronic bronchial asthma Current Visit: Yes Status: Acute Continue nebulizers, tapering dose of IV steroids Inhalation steroids, oxygen titrate O2 sats to more than 90% Patient is currently on 2 L of nasal cannula oxygen Home O2 evaluation prior to discharge -- Respiratory arrest Current Visit: Yes Status: Acute Possibly secondary to the COPD exacerbation. Patient was successfully resuscitated. Will monitor closely in T intensive care unit. -- Lactic acidosis Current Visit: Yes Status: Acute Possibly secondary to the cardiopulmonary arrest. Patient placed on IV fluid. Will monitor chemistry. -- Elevated creatine kinase/rhabdomyolysis Current Visit: Yes Status: Acute We will continue on IV fluid and monitor CK level. Patient had received 2 rounds of CPR prior to arrival in the emergency room today. --Rhabdomyolysis; Elevated CK, trending down Vigorous IV hydration, input output Plenty of oral fluids, monitor CK levels -DVT prophylaxis Current Visit: Yes Status: Acute Patient placed on subcutaneous heparin. -- Full code status Current Visit: Yes Status: Acute Patient is full code. Please closely monitor the patient and adjust management as needed Home O2 evaluation, home O2 set up if needed Possible discharge in 1 to 2 days if stable History Interval history: I have seen and examined the patient at the bedside Patient's chart and medications reviewed Hospitalist Physical - Constitutional Vitals: Temp Pulse Resp BP Pulse Ox 122.0 F H 73 20 128/69 98 08/03/21 08:05 08/03/21 08:05 08/03/21 08:05 08/03/21 08:05 08/03/21 08:05 General appearance: Present: no acute distress, well-nourished - EENT Eyes: Present: PERRL, EOM intact - Neck Neck: Present: supple, normal ROM - Respiratory Respiratory effort: normal Respiratory: bilateral: diminished, negative: rales, rhonchi, wheezing - Cardiovascular Rhythm: regular Heart Sounds: Present: S1 & S2 - Extremities Extremities: no ischemia, No edema - Abdominal General gastrointestinal: soft, non-tender, non-distended, normal bowel sounds - Integumentary Integumentary: Present: clear, warm - Psychiatric Psychiatric: appropriate mood/affect, cooperative - Neurologic Neurologic: CNII-XII intact, moves all extremities HEART Score - HEART Score Troponin: Troponin T < 0.010 ng/mL (0.00-0.029) 08/03/21 05:36 Results - Labs CBC & Chem 7: 08/03/21 05:36 08/03/21 05:36 Labs: Laboratory Last Values WBC 16.5 K/mm3 (4.5-11.0) H 08/03/21 05:36 RBC 5.05 M/mm3 (3.65-5.03) H 08/03/21 05:36 Hgb 13.0 gm/dl (11.8-15.2) 08/03/21 05:36 Hct 41.4 % (35.5-45.6) 08/03/21 05:36 MCV 82 fl (84-94) L 08/03/21 05:36 MCH 26 pg (28-32) L 08/03/21 05:36 MCHC 31 % (32-34) L 08/03/21 05:36 RDW 15.9 % (13.2-15.2) H 08/03/21 05:36 Plt Count 141 K/mm3 (140-440) 08/03/21 05:36 Lymph % (Auto) Rfid Analyst 08/02/21 00:35 Add Manual Diff Complete 08/03/21 05:36 Total Counted 100 08/03/21 05:36 Seg Neutrophils % Rfid Analyst 08/03/21 05:36 Seg Neuts % (Manual) 93.0 % (40.0-70.0) H 08/03/21 05:36 Band Neutrophils % 2.0 % 08/03/21 05:36 Lymphocytes % (Manual) 4.0 % (13.4-35.0) L 08/03/21 05:36 Reactive Lymphs % (Man) 0 % 08/03/21 05:36 Monocytes % (Manual) 1.0 % (0.0-7.3) 08/03/21 05:36 Eosinophils % (Manual) 0 % (0.0-4.3) 08/03/21 05:36 Basophils % (Manual) 0 % (0.0-1.8) 08/03/21 05:36 Metamyelocytes % 0 % 08/03/21 05:36 Myelocytes % 0 % 08/03/21 05:36 Promyelocytes % 0 % 08/03/21 05:36 Blast Cells % 0 % 08/03/21 05:36 Nucleated RBC % Not Reportable 08/03/21 05:36 Seg Neutrophils # Man 15.3 K/mm3 (1.8-7.7) H 08/03/21 05:36 Band Neutrophils # 0.3 K/mm3 08/03/21 05:36 Lymphocytes # (Manual) 0.7 K/mm3 (1.2-5.4) L 08/03/21 05:36 Abs React Lymphs (Man) 0.0 K/mm3 08/03/21 05:36 Monocytes # (Manual) 0.2 K/mm3 (0.0-0.8) 08/03/21 05:36 Eosinophils # (Manual) 0.0 K/mm3 (0.0-0.4) 08/03/21 05:36 Basophils # (Manual) 0.0 K/mm3 (0.0-0.1) 08/03/21 05:36 Metamyelocytes # 0.0 K/mm3 08/03/21 05:36 Myelocytes # 0.0 K/mm3 08/03/21 05:36 Promyelocytes # 0.0 K/mm3 08/03/21 05:36 Blast Cells # 0.0 K/mm3 08/03/21 05:36 WBC Morphology Not Reportable 08/03/21 05:36 Hypersegmented Neuts Not Reportable 08/03/21 05:36 Hyposegmented Neuts Not Reportable 08/03/21 05:36 Hypogranular Neuts Not Reportable 08/03/21 05:36 Smudge Cells Not Reportable 08/03/21 05:36 Toxic Granulation Not Reportable 08/03/21 05:36 Toxic Vacuolation Not Reportable 08/03/21 05:36 Dohle Bodies Not Reportable 08/03/21 05:36 Pelger-Huet Anomaly Not Reportable 08/03/21 05:36 Reggie Rods Not Reportable 08/03/21 05:36 Platelet Estimate Cons 08/03/21 05:36 Clumped Platelets Not Reportable 08/03/21 05:36 Plt Clumps, EDTA Not Reportable 08/03/21 05:36 Large Platelets Few 08/03/21 05:36 Giant Platelets Not Reportable 08/03/21 05:36 Platelet Satelliting Not Reportable 08/03/21 05:36 Plt Morphology Comment Not Reportable 08/03/21 05:36 RBC Morphology Normal 08/03/21 05:36 Dimorphic RBCs Not Reportable 08/03/21 05:36 Polychromasia Not Reportable 08/03/21 05:36 Hypochromasia Not Reportable 08/03/21 05:36 Poikilocytosis Not Reportable 08/03/21 05:36 Anisocytosis Not Reportable 08/03/21 05:36 Microcytosis Not Reportable 08/03/21 05:36 Macrocytosis Not Reportable 08/03/21 05:36 Spherocytes Not Reportable 08/03/21 05:36 Pappenheimer Bodies Not Reportable 08/03/21 05:36 Sickle Cells Not Reportable 08/03/21 05:36 Target Cells Not Reportable 08/03/21 05:36 Tear Drop Cells Not Reportable 08/03/21 05:36 Ovalocytes Not Reportable 08/03/21 05:36 Helmet Cells Not Reportable 08/03/21 05:36 [place] Bodies Not Reportable 08/03/21 05:36 Baylis Rings Not Reportable 08/03/21 05:36 Daniel Cells Not Reportable 08/03/21 05:36 Bite Cells Not Reportable 08/03/21 05:36 Crenated Cell Not Reportable 08/03/21 05:36 Elliptocytes Not Reportable 08/03/21 05:36 Acanthocytes (Spur) Not Reportable 08/03/21 05:36 Rouleaux Not Reportable 08/03/21 05:36 Hemoglobin C Crystals Not Reportable 08/03/21 05:36 Schistocytes Not Reportable 08/03/21 05:36 Malaria parasites Not Reportable 08/03/21 05:36 Bart Bodies Not Reportable 08/03/21 05:36 Hem Pathologist Commnt No 08/03/21 05:36 ABG pH 7.272 pH Units (7.350-7.450) L 08/02/21 00:40 ABG pCO2 50.8 mm Hg 08/02/21 00:40 ABG pO2 174.2 mm Hg (80.0-90.0) H 08/02/21 00:40 ABG HCO3 22.9 mmol/L (20.0-26.0) 08/02/21 00:40 ABG O2 Saturation 99.0 % (95.0-99.0) 08/02/21 00:40 ABG O2 Content 20.4 (0.0-44) 08/02/21 00:40 ABG Base Excess -4.4 mmol/L (-2.0-3.0) L 08/02/21 00:40 ABG Hemoglobin 14.7 gm/dl (14.0-18.0) 08/02/21 00:40 ABG Carboxyhemoglobin 1.0 % (0.0-5.0) 08/02/21 00:40 ABG Methemoglobin 0.5 % (0.0-1.5) 08/02/21 00:40 Oxyhemoglobin 97.5 % (95.0-99.0) 08/02/21 00:40 FiO2 36 % 08/02/21 00:40 Sodium 139 mmol/L (137-145) 08/03/21 05:36 Potassium 4.9 mmol/L (3.6-5.0) D 08/03/21 05:36 Chloride 107.5 mmol/L (98-107) H 08/03/21 05:36 Carbon Dioxide 19 mmol/L (22-30) L 08/03/21 05:36 Anion Gap 17 mmol/L 08/03/21 05:36 BUN 20 mg/dL (9-20) 08/03/21 05:36 Creatinine 1.5 mg/dL (0.8-1.3) H 08/03/21 05:36 Estimated GFR 57 ml/min 08/03/21 05:36 BUN/Creatinine Ratio 13 % 08/03/21 05:36 Glucose 175 mg/dL (75-100) H 08/03/21 05:36 Lactic Acid 1.60 mmol/L (0.7-2.0) 08/03/21 05:36 Calcium 8.7 mg/dL (8.4-10.2) 08/03/21 05:36 Total Creatine Kinase 1068 units/L (55-170) H 08/03/21 08:00 CK-MB (CK-2) 4.4 ng/mL (0.0-4.0) H 08/02/21 00:35 CK-MB (CK-2) Rel Index 0.7 (0-4) 08/02/21 00:35 Troponin T < 0.010 ng/mL (0.00-0.029) 08/03/21 05:36 NT-Pro-B Natriuret Pep 219.9 pg/mL (0-900) 08/02/21 00:35 Urine Opiates Screen Presumptive positive 08/02/21 Unknown Urine Methadone Screen Presumptive negative 08/02/21 Unknown Ur Barbiturates Screen Presumptive negative 08/02/21 Unknown Ur Phencyclidine Scrn Presumptive negative 08/02/21 Unknown Ur Amphetamines Screen Presumptive negative 08/02/21 Unknown U Benzodiazepines Scrn Presumptive negative 08/02/21 Unknown Urine Cocaine Screen Presumptive negative 08/02/21 Unknown U Marijuana (THC) Screen Presumptive negative 08/02/21 Unknown Drugs of Abuse Note Disclamer 08/02/21 Unknown Microbiology: Microbiology 08/02/21 01:26 Peripheral/Venous Blood Culture - Preliminary NO GROWTH AFTER 24 HOURS 08/02/21 01:26 Peripheral/Venous Blood Culture - Preliminary NO GROWTH AFTER 24 HOURS Fuentes/IV: Voiding Method Urinal Active Medications - Current Medications Current Medications: Generic Name Dose Route Start Last Admin Trade Name Freq PRN Reason Stop Dose Admin Acetaminophen 650 mg 08/02/21 03:36 Acetaminophen 325 Mg Tab PO Q4H PRN Pain MILD(1-3)/Fever >100.5/NIETO Albuterol 2.5 mg 08/02/21 03:36 Albuterol 2.5 Mg/3 Ml Nebu IH Q3HRT PRN Shortness Of Breath Albuterol/Ipratropium 1 ampul 08/02/21 08:00 08/03/21 09:54 Ipratropium/Albuterol Sulfate 3 Ml Ampul.Neb IH Not Given Q6HRT [facility] Amlodipine Besylate 10 mg 08/03/21 10:00 Amlodipine 10 Mg Tab PO QDAY LISA Atorvastatin Calcium 20 mg 08/02/21 22:00 08/02/21 22:07 Atorvastatin 20 Mg Tab PO 20 mg QHS [facility] Administration Doxazosin Mesylate 2 mg 08/03/21 10:00 Doxazosin 1 Mg Tab PO QDAY LISA Famotidine 20 mg 08/02/21 22:00 08/02/21 22:07 Famotidine 20 Mg Tab PO 20 mg QHS [facility] Administration Fluticasone Propionate 50 mcg 08/03/21 10:00 Fluticasone Propionate Nasal [place] 16 Gm NS QDAY LISA Heparin Sodium (Porcine) 5,000 unit 08/02/21 22:00 08/02/21 22:06 Heparin 5,000 Unit/1 Ml Vial SUB-Q 5,000 unit Q12HR LISA Administration Hydralazine HCl 10 mg 08/02/21 14:30 Hydralazine 20 Mg/1 Ml Inj IV Q4HR PRN Hypertension Sodium Chloride 1,000 mls @ 150 mls/hr 08/02/21 04:00 08/03/21 07:13 Nacl 0.9% 1000 Ml IV 150 mls/hr DIRECT LISA Administration Magnesium Hydroxide 30 ml 08/02/21 03:36 Magnesium Hydroxide (Mom) Oral Liqd Udc PO Q4H PRN Constipation Methylprednisolone Sodium Succinate 40 mg 08/02/21 06:00 08/03/21 05:49 Methylprednisolone Sod Succinate 40 Mg/1 Ml Inj IV 40 mg Q8HR LISA Administration Morphine Sulfate 2 mg 08/02/21 03:36 Morphine 2 Mg/1 Ml Inj IV Q4H PRN Pain, Moderate (4-6) Morphine Sulfate 4 mg 08/02/21 03:36 Morphine 4 Mg/1 Ml Inj IV Q4H PRN Pain , Severe (7-10) Ondansetron HCl 4 mg 08/02/21 03:36 Ondansetron 4 Mg/2 Ml Inj IV Q8H PRN Nausea And Vomiting Sodium Chloride 10 ml 08/02/21 10:00 08/02/21 22:12 Sodium Chloride 0.9% 10 Ml Flush Syringe IV 10 ml BID LISA Administration Sodium Chloride 10 ml 08/02/21 03:36 08/03/21 05:51 Sodium Chloride 0.9% 10 Ml Flush Syringe IV 10 ml PRN PRN Administration LINE FLUSH
[2021-08-03] MEDS ORDERED: NON-FORMULARY EACH (Atorvastatin Calcium [Lipitor] 80 MG Tablet) PO SCH (10:00)
[2021-08-03] MEDS ORDERED: NON-FORMULARY EACH (Doxazosin Mesylate [Cardura] 2 MG Tablet) PO SCH (10:00)
[2021-08-03] MEDS: DOXAZOSIN 1 MG TAB PO SCH (10:12)
[2021-08-03] MEDS: amLODIPine 10 MG TAB PO SCH (10:13)
[2021-08-03] MEDS: HEPARIN 5,000 UNIT/1 ML VIAL SUB-Q SCH ×2 (10:13→22:14)
[2021-08-03] MEDS: FLUTICASONE PROPIONATE NASAL SPRAY 16 GM NS SCH (10:18)
--- NOTE | 2021-08-03 10:20 | Electrocardiograph Report ---
[facility] Test Date: 2021-08-02 Test Time: 00:29:23 Pat Name: ANICETO FRANCO Department: Room: A485 Gender: M Manager Presentation: LALITA : 1955 Requested By: APPLE ALLEN Order Number: [id number] Reading MD: Martinez Louise Measurements Intervals [place] Rate: 103 P: 67 AK: 178 QRS: 26 QRSD: 77 T: 65 QT: 364 QTc: 476 Interpretive Statements Sinus tachycardia Atrial premature complex No previous ECG available for comparison Electronically Signed On 08-03-2021 10:19:59 EST by Martinez Louise
[2021-08-03 10:41] LABS: ABG Base Excess -3.2 mmol/L (-2.0-3.0); ABG Methemoglobin 0.6 % (0.0-1.5); ABG Oxygen Saturation 96.5 % (95.0-99.0); ABG PCO2 40.1 mm Hg; ABG PH 7.358 pH Units (7.350-7.450); ABG PO2 82.9 mm Hg (80.0-90.0)
--- NOTE | 2021-08-03 12:35 | Progress Note ---
Assessment and Plan - Patient Problems (1) Acute asthma exacerbation Current Visit: Yes Status: Acute Plan to address problem: Patient presented with acute asthma exacerbation which was followed by transient pulmonary arrest, now looks and feels better after several hours of BiPAP therapy. No cardiac complaints, ECG shows no acute ischemic changes, troponin levels negative x2. Echocardiogram done showed normal left ventricular systolic function, ejection fraction 60%, no significant valvular lesions, moderate pulmonary hypertension with a PA systolic pressure of 55. Eventually he will need noninvasive cardiac ischemia assessment which may be done as an outpatient after asthma exacerbation is optimally managed. Subjective Date of service: 08/03/21 Principal diagnosis: Asthma exacerbation, syncope Interval history: Patient is comfortable, no cardiac complaints, no new cardiac events reported. Echocardiogram done showed normal left ventricular systolic function, ejection fraction 60%, no significant valvular lesions, moderate pulmonary hypertension with a PA systolic pressure of 55. Objective Vital Signs Temp Pulse Pulse Resp Resp BP BP 08/03/21 10:00 08/03/21 09:00 92 H 22 08/03/21 08:05 122.0 F H 73 20 128/69 08/03/21 04:20 98.6 F 77 18 127/70 08/03/21 01:16 84 20 08/03/21 01:15 08/02/21 23:44 72 08/02/21 22:45 08/02/21 22:21 89 19 151/86 08/02/21 22:11 87 18 151/86 08/02/21 22:06 98.2 F 08/02/21 22:01 89 18 151/86 08/02/21 21:34 08/02/21 21:31 90 18 166/100 08/02/21 21:01 82 21 147/76 08/02/21 20:51 84 21 156/87 08/02/21 20:41 91 H 19 156/87 08/02/21 20:31 101 H 16 156/87 08/02/21 20:21 88 11 L 152/84 08/02/21 20:11 84 16 152/84 08/02/21 20:01 89 28 H 152/84 08/02/21 19:31 90 28 H 133/68 08/02/21 19:00 86 16 08/02/21 18:30 85 25 H 153/74 08/02/21 18:00 88 21 141/74 08/02/21 17:47 93 H 18 160/84 08/02/21 17:30 93 H 17 139/67 08/02/21 17:16 90 29 H 144/71 08/02/21 17:00 89 15 144/71 08/02/21 16:46 90 16 160/84 08/02/21 16:30 93 H 19 160/84 08/02/21 16:16 93 H 16 139/73 08/02/21 16:00 90 13 139/73 08/02/21 15:46 77 6 L 141/80 08/02/21 15:39 84 18 08/02/21 15:30 85 19 141/80 08/02/21 15:16 83 18 159/97 08/02/21 15:00 81 17 159/97 08/02/21 14:46 86 18 153/76 08/02/21 14:30 84 14 153/76 08/02/21 14:16 79 28 H 139/80 08/02/21 14:00 76 16 139/80 08/02/21 13:46 82 21 140/81 08/02/21 13:30 74 21 140/81 08/02/21 13:16 81 22 144/79 08/02/21 13:00 80 26 H 144/79 08/02/21 12:46 82 22 133/74 Pulse Ox 08/03/21 10:00 97 08/03/21 09:00 08/03/21 08:05 98 08/03/21 04:20 96 08/03/21 01:16 08/03/21 01:15 99 08/02/21 23:44 99 08/02/21 22:45 96 08/02/21 22:21 96 08/02/21 22:11 97 08/02/21 22:06 08/02/21 22:01 97 08/02/21 21:34 0 L 08/02/21 21:31 96 08/02/21 21:01 96 08/02/21 20:51 98 08/02/21 20:41 96 08/02/21 20:31 96 08/02/21 20:21 97 08/02/21 20:11 97 08/02/21 20:01 97 08/02/21 19:31 98 08/02/21 19:00 97 08/02/21 18:30 97 08/02/21 18:00 97 08/02/21 17:47 96 08/02/21 17:30 95 08/02/21 17:16 96 08/02/21 17:00 96 08/02/21 16:46 95 08/02/21 16:30 96 08/02/21 16:16 96 08/02/21 16:00 96 08/02/21 15:46 100 08/02/21 15:39 08/02/21 15:30 97 08/02/21 15:16 97 08/02/21 15:00 96 08/02/21 14:46 95 08/02/21 14:30 97 08/02/21 14:16 97 08/02/21 14:00 97 08/02/21 13:46 97 08/02/21 13:30 96 08/02/21 13:16 97 08/02/21 13:00 95 08/02/21 12:46 95 - Physical Examination HEENT: Positive: PERRL Neck: Positive: neck supple Cardiac: Positive: Reg Rate and Rhythm Lungs: Positive: Decreased Breath Sounds Neuro: Positive: Grossly Intact Abdomen: Positive: Soft Skin: Positive: Clear Extremities: Absent: edema - Labs and Meds CBC 08/03/21 Range/Units 05:36 WBC 16.5 H (4.5-11.0) K/mm3 RBC 5.05 H (3.65-5.03) M/mm3 Hgb 13.0 (11.8-15.2) gm/dl Hct 41.4 (35.5-45.6) % Plt Count 141 (140-440) K/mm3 Comprehensive Metabolic Panel 08/03/21 Range/Units 05:36 Sodium 139 (137-145) mmol/L Potassium 4.9 D (3.6-5.0) mmol/L Chloride 107.5 H (98-107) mmol/L Carbon Dioxide 19 L (22-30) mmol/L BUN 20 (9-20) mg/dL Creatinine 1.5 H (0.8-1.3) mg/dL Glucose 175 H (75-100) mg/dL Calcium 8.7 (8.4-10.2) mg/dL
--- NOTE | 2021-08-03 12:49 | Progress Note ---
Assessment and Plan Acute hypoxemic respiratory failure Cardiac arrest with ROSC AE-Asthma Metabolic acidosis / Lactic acidosis Acute kidney injury Elevated serum creatine kinase Obesity - wean supplemental oxygen to keep O2 sats > 90% - continue bronchodilators (MAURICIO & LABA) with pulm hygiene per RT - continue systemic steroids with slow taper - continue inhaled corticosteroids - avoid nephrotoxins, renally dose all medications - continue mobility protocols to prevent pressure ulcers - PT/OT as tolerated - Wound care per RN/WCT - accuchecks with glycemic control per SSI for target blood glucose < 180 mg/dL - tobacco abstinence strongly counseled at the bedside - home oxygen evaluation at discharge - GI & VTE prophylaxis - Flu & pneumovax per protocol - Pulmonary out patient follow up for PFTs and optimization of respiratory stat us - continue other care per attending / other consultants - prn analgesia per pain score ... re-evaluate in am & prn Subjective Date of service: 08/03/21 Principal diagnosis: AHRF; Cardiac arrest with ROSC; AE-Asthma; LAURIE; Lactic acidosis; Obesity Interval history: Patient is seen today for: Acute hypoxemic respiratory failure; Cardiac arrest with ROSC; AE-Asthma; LAURIE; Lactic acidosis; Obesity Seen and examined at bedside; 24hour events reviewed; nursing and respiratory care staff consulted; no adverse overnight events reported to me; resting in bed ; Objective Vital Signs - 12hr 08/03/21 08/03/21 08/03/21 01:15 01:16 04:20 Temperature 98.6 F Pulse Rate 77 Pulse Rate [ 84 Bilateral Throughout] Respiratory 18 Rate Respiratory 20 Rate [Bilateral Throughout] Blood Pressure 127/70 O2 Sat by Pulse 99 96 Oximetry 08/03/21 08/03/21 08/03/21 08:05 09:00 10:00 Temperature 122.0 F H Pulse Rate 73 Pulse Rate [ 92 H Bilateral Throughout] Respiratory 20 Rate Respiratory 22 Rate [Bilateral Throughout] Blood Pressure 128/69 O2 Sat by Pulse 98 97 Oximetry 08/03/21 11:52 Temperature 98.3 F Pulse Rate 87 Pulse Rate [ Bilateral Throughout] Respiratory 20 Rate Respiratory Rate [Bilateral Throughout] Blood Pressure 124/68 O2 Sat by Pulse 95 Oximetry CBC and BMP: 08/03/21 05:36 08/03/21 05:36 ABG, PT/INR, D-dimer: ABG ABG pH 7.358 pH Units (7.350-7.450) 08/03/21 10:32 ABG pCO2 40.1 mm Hg 08/03/21 10:32 ABG pO2 82.9 mm Hg (80.0-90.0) 08/03/21 10:32 ABG O2 Saturation 96.5 % (95.0-99.0) 08/03/21 10:32 Abnormal lab findings: Abnormal Labs 08/02/21 08/02/21 08/02/21 00:35 00:35 00:35 WBC RBC 5.59 H Hct 46.4 H MCV 83 L MCH 26 L MCHC 31 L RDW 16.0 H Seg Neuts % (Manual) Lymphocytes % (Manual) 50.0 H Monocytes % (Manual) 9.0 H Seg Neutrophils # Man Lymphocytes # (Manual) ABG pH ABG pO2 ABG Base Excess ABG Hemoglobin Chloride Carbon Dioxide 18 L Creatinine 1.7 H Glucose 247 H Lactic Acid 3.40 H* Total Creatine Kinase 587 H CK-MB (CK-2) 4.4 H 08/02/21 08/02/21 08/02/21 00:40 01:26 02:53 WBC RBC Hct MCV MCH MCHC RDW Seg Neuts % (Manual) Lymphocytes % (Manual) Monocytes % (Manual) Seg Neutrophils # Man Lymphocytes # (Manual) ABG pH 7.272 L ABG pO2 174.2 H ABG Base Excess -4.4 L ABG Hemoglobin Chloride Carbon Dioxide Creatinine Glucose Lactic Acid 3.00 H* 3.80 H* Total Creatine Kinase CK-MB (CK-2) 08/02/21 08/02/21 08/02/21 06:40 12:22 12:22 WBC RBC Hct MCV MCH MCHC RDW Seg Neuts % (Manual) Lymphocytes % (Manual) Monocytes % (Manual) Seg Neutrophils # Man Lymphocytes # (Manual) ABG pH ABG pO2 ABG Base Excess ABG Hemoglobin Chloride Carbon Dioxide Creatinine Glucose Lactic Acid 2.40 H* 2.80 H* Total Creatine Kinase 1018 H CK-MB (CK-2) 08/02/21 08/03/21 08/03/21 15:50 05:36 05:36 WBC 16.5 H RBC 5.05 H Hct MCV 82 L MCH 26 L MCHC 31 L RDW 15.9 H Seg Neuts % (Manual) 93.0 H Lymphocytes % (Manual) 4.0 L Monocytes % (Manual) Seg Neutrophils # Man 15.3 H Lymphocytes # (Manual) 0.7 L ABG pH ABG pO2 ABG Base Excess ABG Hemoglobin Chloride 107.5 H Carbon Dioxide 19 L Creatinine 1.5 H Glucose 175 H Lactic Acid Total Creatine Kinase 1176 H CK-MB (CK-2) 08/03/21 08/03/21 08/03/21 05:36 08:00 10:32 WBC RBC Hct MCV MCH MCHC RDW Seg Neuts % (Manual) Lymphocytes % (Manual) Monocytes % (Manual) Seg Neutrophils # Man Lymphocytes # (Manual) ABG pH ABG pO2 ABG Base Excess -3.2 L ABG Hemoglobin 13.9 L Chloride Carbon Dioxide Creatinine Glucose Lactic Acid Total Creatine Kinase 1145 H 1068 H CK-MB (CK-2)
[2021-08-03] MEDS: FAMOTIDINE 20 MG TAB PO SCH (22:15)
[2021-08-04] MEDS: IPRATROPIUM/ALBUTEROL SULFATE 3 ML AMPUL.NEB IH SCH ×2 (02:17→09:30)
[2021-08-04] MEDS: methylPREDNISolone Sod Succinate 40 MG/1 ML INJ IV SCH ×2 (05:40→13:56)
[2021-08-04] MEDS: SODIUM CHLORIDE 0.9% 1000 ML 1,000 ML IV SCH ×2 (05:43→11:53)
--- NOTE | 2021-08-04 08:42 | Progress Note ---
Assessment and Plan - Patient Problems (1) Acute asthma exacerbation Current Visit: Yes Status: Acute Plan to address problem: Patient presented with acute asthma exacerbation which was followed by transient pulmonary arrest, now looks and feels better after several hours of BiPAP therapy. No cardiac complaints, ECG shows no acute ischemic changes, troponin levels negative x2. Echocardiogram done showed normal left ventricular systolic function, ejection fraction 60%, no significant valvular lesions, moderate pulmonary hypertension with a PA systolic pressure of 55. As outpatient he will need noninvasive cardiac ischemia assessment, follow-up in our office in 7 days. Subjective Date of service: 08/04/21 Principal diagnosis: AHRF; Cardiac arrest with ROSC; AE-Asthma; LAURIE; Lactic acidosis; Obesity Interval history: Patient is comfortable, no cardiac complaints, no new cardiac events reported. Echocardiogram done showed normal left ventricular systolic function, ejection fraction 60%, no significant valvular lesions, moderate pulmonary hypertension with a PA systolic pressure of 55. Objective Vital Signs Temp Pulse Pulse Resp Resp BP Pulse Ox 08/04/21 08:12 98.3 F 84 20 147/88 95 08/04/21 03:31 98.0 F 94 H 18 142/88 95 08/04/21 02:32 98 08/04/21 02:19 84 20 08/04/21 01:00 97 08/03/21 23:01 97.5 F L 79 18 98 08/03/21 23:00 80 129/79 96 08/03/21 21:02 99 08/03/21 21:00 101 H 20 08/03/21 19:26 98.0 F 80 18 135/77 98 08/03/21 18:40 92 H 27 H 154/107 99 08/03/21 18:38 154/100 99 08/03/21 16:05 98.1 F 94 H 20 140/77 96 08/03/21 15:23 88 20 08/03/21 13:10 82 08/03/21 11:52 98.3 F 87 20 124/68 95 08/03/21 10:00 97 08/03/21 09:42 21 93 08/03/21 09:00 92 H 22 - Physical Examination HEENT: Positive: PERRL Neck: Positive: neck supple Cardiac: Positive: Reg Rate and Rhythm Lungs: Positive: Decreased Breath Sounds Neuro: Positive: Grossly Intact Abdomen: Positive: Soft Skin: Positive: Clear Extremities: Absent: edema
[2021-08-04] MEDS: HEPARIN 5,000 UNIT/1 ML VIAL SUB-Q SCH (11:48)
[2021-08-04] MEDS: amLODIPine 10 MG TAB PO SCH (11:49)
[2021-08-04] MEDS: DOXAZOSIN 1 MG TAB PO SCH (11:49)
[2021-08-04 12:02] VITALS: BP 162/88
[2021-08-04] MEDS: FLUTICASONE PROPIONATE NASAL SPRAY 16 GM NS SCH (12:40)
--- NOTE | 2021-08-04 12:54 | Progress Note ---
Assessment and Plan Acute hypoxemic respiratory failure Cardiac arrest with ROSC AE-Asthma Metabolic acidosis / Lactic acidosis Acute kidney injury Elevated serum creatine kinase Obesity - wean supplemental oxygen to keep O2 sats > 90% - continue bronchodilators (MAURICIO & LABA) with pulm hygiene per RT - continue systemic steroids with slow taper - continue inhaled corticosteroids - avoid nephrotoxins, renally dose all medications - continue mobility protocols to prevent pressure ulcers - PT/OT as tolerated - Wound care per RN/WCT - accuchecks with glycemic control per SSI for target blood glucose < 180 mg/dL - tobacco abstinence strongly counseled at the bedside - home oxygen evaluation at discharge - GI & VTE prophylaxis - Flu & pneumovax per protocol - Pulmonary out patient follow up for PFTs and optimization of respiratory stat us - continue other care per attending / other consultants - prn analgesia per pain score ... re-evaluate in am & prn Subjective Date of service: 08/04/21 Principal diagnosis: AHRF; Cardiac arrest with ROSC; AE-Asthma; LAURIE; Lactic acidosis; Obesity Interval history: Patient is seen today for: Acute hypoxemic respiratory failure; Cardiac arrest with ROSC; AE-Asthma; LAURIE; Lactic acidosis; Obesity Seen and examined at bedside; 24hour events reviewed; nursing and respiratory care staff consulted; no adverse overnight events reported to me; resting in be d; Objective Vital Signs - 12hr 08/04/21 08/04/21 08/04/21 01:00 02:19 02:32 Temperature Pulse Rate Pulse Rate [ 84 Bilateral Throughout] Respiratory Rate Respiratory 20 Rate [Bilateral Throughout] Blood Pressure O2 Sat by Pulse 97 98 Oximetry 08/04/21 08/04/21 08/04/21 03:31 08:12 11:59 Temperature 98.0 F 98.3 F Pulse Rate 94 H 84 75 Pulse Rate [ Bilateral Throughout] Respiratory 18 20 Rate Respiratory Rate [Bilateral Throughout] Blood Pressure 142/88 147/88 162/88 O2 Sat by Pulse 95 95 97 Oximetry 08/04/21 12:00 Temperature 98.1 F Pulse Rate 77 Pulse Rate [ Bilateral Throughout] Respiratory Rate Respiratory Rate [Bilateral Throughout] Blood Pressure O2 Sat by Pulse 96 Oximetry CBC and BMP: 08/03/21 05:36 08/03/21 05:36 ABG, PT/INR, D-dimer: ABG ABG pH 7.358 pH Units (7.350-7.450) 08/03/21 10:32 ABG pCO2 40.1 mm Hg 08/03/21 10:32 ABG pO2 82.9 mm Hg (80.0-90.0) 08/03/21 10:32 ABG O2 Saturation 96.5 % (95.0-99.0) 08/03/21 10:32 Abnormal lab findings: Abnormal Labs 08/02/21 08/02/21 08/02/21 00:35 00:35 00:35 WBC RBC 5.59 H Hct 46.4 H MCV 83 L MCH 26 L MCHC 31 L RDW 16.0 H Seg Neuts % (Manual) Lymphocytes % (Manual) 50.0 H Monocytes % (Manual) 9.0 H Seg Neutrophils # Man Lymphocytes # (Manual) ABG pH ABG pO2 ABG Base Excess ABG Hemoglobin Chloride Carbon Dioxide 18 L Creatinine 1.7 H Glucose 247 H Lactic Acid 3.40 H* Total Creatine Kinase 587 H CK-MB (CK-2) 4.4 H 08/02/21 08/02/21 08/02/21 00:40 01:26 02:53 WBC RBC Hct MCV MCH MCHC RDW Seg Neuts % (Manual) Lymphocytes % (Manual) Monocytes % (Manual) Seg Neutrophils # Man Lymphocytes # (Manual) ABG pH 7.272 L ABG pO2 174.2 H ABG Base Excess -4.4 L ABG Hemoglobin Chloride Carbon Dioxide Creatinine Glucose Lactic Acid 3.00 H* 3.80 H* Total Creatine Kinase CK-MB (CK-2) 08/02/21 08/02/21 08/02/21 06:40 12:22 12:22 WBC RBC Hct MCV MCH MCHC RDW Seg Neuts % (Manual) Lymphocytes % (Manual) Monocytes % (Manual) Seg Neutrophils # Man Lymphocytes # (Manual) ABG pH ABG pO2 ABG Base Excess ABG Hemoglobin Chloride Carbon Dioxide Creatinine Glucose Lactic Acid 2.40 H* 2.80 H* Total Creatine Kinase 1018 H CK-MB (CK-2) 08/02/21 08/03/21 08/03/21 15:50 05:36 05:36 WBC 16.5 H RBC 5.05 H Hct MCV 82 L MCH 26 L MCHC 31 L RDW 15.9 H Seg Neuts % (Manual) 93.0 H Lymphocytes % (Manual) 4.0 L Monocytes % (Manual) Seg Neutrophils # Man 15.3 H Lymphocytes # (Manual) 0.7 L ABG pH ABG pO2 ABG Base Excess ABG Hemoglobin Chloride 107.5 H Carbon Dioxide 19 L Creatinine 1.5 H Glucose 175 H Lactic Acid Total Creatine Kinase 1176 H CK-MB (CK-2) 08/03/21 08/03/21 08/03/21 05:36 08:00 10:32 WBC RBC Hct MCV MCH MCHC RDW Seg Neuts % (Manual) Lymphocytes % (Manual) Monocytes % (Manual) Seg Neutrophils # Man Lymphocytes # (Manual) ABG pH ABG pO2 ABG Base Excess -3.2 L ABG Hemoglobin 13.9 L Chloride Carbon Dioxide Creatinine Glucose Lactic Acid Total Creatine Kinase 1145 H 1068 H CK-MB (CK-2)
--- NOTE | 2021-08-04 13:47 | Progress Note ---
Assessment and Plan Assessment and plan: --Acute on chronic bronchial asthma Current Visit: Yes Status: Acute Continue nebulizers, tapering dose of IV steroids Inhalation steroids, oxygen titrate O2 sats to more than 90% Patient is currently on 2 L of nasal cannula oxygen Home O2 evaluation prior to discharge -- Respiratory arrest Current Visit: Yes Status: Acute Possibly secondary to the COPD exacerbation. Patient was successfully resuscitated. Will monitor closely in T intensive care unit. -- Lactic acidosis Current Visit: Yes Status: Acute Possibly secondary to the cardiopulmonary arrest. Patient placed on IV fluid. Will monitor chemistry. -- Elevated creatine kinase/rhabdomyolysis Current Visit: Yes Status: Acute We will continue on IV fluid and monitor CK level. Patient had received 2 rounds of CPR prior to arrival in the emergency room today. --Rhabdomyolysis; Elevated CK, trending down Vigorous IV hydration, input output Plenty of oral fluids, monitor CK levels -DVT prophylaxis Current Visit: Yes Status: Acute Patient placed on subcutaneous heparin. -- Full code status Current Visit: Yes Status: Acute Patient is full code. Please closely monitor the patient and adjust management as needed Home O2 evaluation, home O2 set up if needed Possible discharge in 1 to 2 days if stable Hospitalist Physical - Constitutional Vitals: Temp Pulse Resp BP Pulse Ox 98.1 F 77 20 162/88 96 08/04/21 12:00 08/04/21 12:00 08/04/21 08:12 08/04/21 11:59 08/04/21 12:00 General appearance: Present: no acute distress, well-nourished HEART Score - HEART Score Troponin: Troponin T < 0.010 ng/mL (0.00-0.029) 08/03/21 05:36 Results - Labs CBC & Chem 7: 08/03/21 05:36 08/03/21 05:36 Labs: Laboratory Last Values WBC 16.5 K/mm3 (4.5-11.0) H 08/03/21 05:36 RBC 5.05 M/mm3 (3.65-5.03) H 08/03/21 05:36 Hgb 13.0 gm/dl (11.8-15.2) 08/03/21 05:36 Hct 41.4 % (35.5-45.6) 08/03/21 05:36 MCV 82 fl (84-94) L 08/03/21 05:36 MCH 26 pg (28-32) L 08/03/21 05:36 MCHC 31 % (32-34) L 08/03/21 05:36 RDW 15.9 % (13.2-15.2) H 08/03/21 05:36 Plt Count 141 K/mm3 (140-440) 08/03/21 05:36 Lymph % (Auto) [employer] 08/02/21 00:35 Add Manual Diff Complete 08/03/21 05:36 Total Counted 100 08/03/21 05:36 Seg Neutrophils % [employer] 08/03/21 05:36 Seg Neuts % (Manual) 93.0 % (40.0-70.0) H 08/03/21 05:36 Band Neutrophils % 2.0 % 08/03/21 05:36 Lymphocytes % (Manual) 4.0 % (13.4-35.0) L 08/03/21 05:36 Reactive Lymphs % (Man) 0 % 08/03/21 05:36 Monocytes % (Manual) 1.0 % (0.0-7.3) 08/03/21 05:36 Eosinophils % (Manual) 0 % (0.0-4.3) 08/03/21 05:36 Basophils % (Manual) 0 % (0.0-1.8) 08/03/21 05:36 Metamyelocytes % 0 % 08/03/21 05:36 Myelocytes % 0 % 08/03/21 05:36 Promyelocytes % 0 % 08/03/21 05:36 Blast Cells % 0 % 08/03/21 05:36 Nucleated RBC % Not Reportable 08/03/21 05:36 Seg Neutrophils # Man 15.3 K/mm3 (1.8-7.7) H 08/03/21 05:36 Band Neutrophils # 0.3 K/mm3 08/03/21 05:36 Lymphocytes # (Manual) 0.7 K/mm3 (1.2-5.4) L 08/03/21 05:36 Abs React Lymphs (Man) 0.0 K/mm3 08/03/21 05:36 Monocytes # (Manual) 0.2 K/mm3 (0.0-0.8) 08/03/21 05:36 Eosinophils # (Manual) 0.0 K/mm3 (0.0-0.4) 08/03/21 05:36 Basophils # (Manual) 0.0 K/mm3 (0.0-0.1) 08/03/21 05:36 Metamyelocytes # 0.0 K/mm3 08/03/21 05:36 Myelocytes # 0.0 K/mm3 08/03/21 05:36 Promyelocytes # 0.0 K/mm3 08/03/21 05:36 Blast Cells # 0.0 K/mm3 08/03/21 05:36 WBC Morphology Not Reportable 08/03/21 05:36 Hypersegmented Neuts Not Reportable 08/03/21 05:36 Hyposegmented Neuts Not Reportable 08/03/21 05:36 Hypogranular Neuts Not Reportable 08/03/21 05:36 Smudge Cells Not Reportable 08/03/21 05:36 Toxic Granulation Not Reportable 08/03/21 05:36 Toxic Vacuolation Not Reportable 08/03/21 05:36 Dohle Bodies Not Reportable 08/03/21 05:36 Pelger-Huet Anomaly Not Reportable 08/03/21 05:36 Reggie Rods Not Reportable 08/03/21 05:36 Platelet Estimate Cons 08/03/21 05:36 Clumped Platelets Not Reportable 08/03/21 05:36 Plt Clumps, EDTA Not Reportable 08/03/21 05:36 Large Platelets Few 08/03/21 05:36 Giant Platelets Not Reportable 08/03/21 05:36 Platelet Satelliting Not Reportable 08/03/21 05:36 Plt Morphology Comment Not Reportable 08/03/21 05:36 RBC Morphology Normal 08/03/21 05:36 Dimorphic RBCs Not Reportable 08/03/21 05:36 Polychromasia Not Reportable 08/03/21 05:36 Hypochromasia Not Reportable 08/03/21 05:36 Poikilocytosis Not Reportable 08/03/21 05:36 Anisocytosis Not Reportable 08/03/21 05:36 Microcytosis Not Reportable 08/03/21 05:36 Macrocytosis Not Reportable 08/03/21 05:36 Spherocytes Not Reportable 08/03/21 05:36 Pappenheimer Bodies Not Reportable 08/03/21 05:36 Sickle Cells Not Reportable 08/03/21 05:36 Target Cells Not Reportable 08/03/21 05:36 Tear Drop Cells Not Reportable 08/03/21 05:36 Ovalocytes Not Reportable 08/03/21 05:36 Helmet Cells Not Reportable 08/03/21 05:36 [place] Bodies Not Reportable 08/03/21 05:36 [place] Rings Not Reportable 08/03/21 05:36 [place] Cells Not Reportable 08/03/21 05:36 Bite Cells Not Reportable 08/03/21 05:36 Crenated Cell Not Reportable 08/03/21 05:36 Elliptocytes Not Reportable 08/03/21 05:36 Acanthocytes (Spur) Not Reportable 08/03/21 05:36 Rouleaux Not Reportable 08/03/21 05:36 Hemoglobin C Crystals Not Reportable 08/03/21 05:36 Schistocytes Not Reportable 08/03/21 05:36 Malaria parasites Not Reportable 08/03/21 05:36 Bart Bodies Not Reportable 08/03/21 05:36 Hem Pathologist Commnt No 08/03/21 05:36 ABG pH 7.358 pH Units (7.350-7.450) 08/03/21 10:32 ABG pCO2 40.1 mm Hg 08/03/21 10:32 ABG pO2 82.9 mm Hg (80.0-90.0) 08/03/21 10:32 ABG HCO3 22.0 mmol/L (20.0-26.0) 08/03/21 10:32 ABG O2 Saturation 96.5 % (95.0-99.0) 08/03/21 10:32 ABG O2 Content 18.6 (0.0-44) 08/03/21 10:32 ABG Base Excess -3.2 mmol/L (-2.0-3.0) L 08/03/21 10:32 ABG Hemoglobin 13.9 gm/dl (14.0-18.0) L 08/03/21 10:32 ABG Carboxyhemoglobin 0.9 % (0.0-5.0) 08/03/21 10:32 ABG Methemoglobin 0.6 % (0.0-1.5) 08/03/21 10:32 Oxyhemoglobin 95.1 % (95.0-99.0) 08/03/21 10:32 FiO2 28 % 08/03/21 10:32 Sodium 139 mmol/L (137-145) 08/03/21 05:36 Potassium 4.9 mmol/L (3.6-5.0) D 08/03/21 05:36 Chloride 107.5 mmol/L (98-107) H 08/03/21 05:36 Carbon Dioxide 19 mmol/L (22-30) L 08/03/21 05:36 Anion Gap 17 mmol/L 08/03/21 05:36 BUN 20 mg/dL (9-20) 08/03/21 05:36 Creatinine 1.5 mg/dL (0.8-1.3) H 08/03/21 05:36 Estimated GFR 57 ml/min 08/03/21 05:36 BUN/Creatinine Ratio 13 % 08/03/21 05:36 Glucose 175 mg/dL (75-100) H 08/03/21 05:36 Lactic Acid 1.60 mmol/L (0.7-2.0) 08/03/21 05:36 Calcium 8.7 mg/dL (8.4-10.2) 08/03/21 05:36 Total Creatine Kinase 1068 units/L (55-170) H 08/03/21 08:00 CK-MB (CK-2) 4.4 ng/mL (0.0-4.0) H 08/02/21 00:35 CK-MB (CK-2) Rel Index 0.7 (0-4) 08/02/21 00:35 Troponin T < 0.010 ng/mL (0.00-0.029) 08/03/21 05:36 NT-Pro-B Natriuret Pep 219.9 pg/mL (0-900) 08/02/21 00:35 Procalcitonin 0.99 ng/mL (<0.15) 08/02/21 Unknown Urine Opiates Screen Presumptive positive 08/02/21 Unknown Urine Methadone Screen Presumptive negative 08/02/21 Unknown Ur Barbiturates Screen Presumptive negative 08/02/21 Unknown Ur Phencyclidine Scrn Presumptive negative 08/02/21 Unknown Ur Amphetamines Screen Presumptive negative 08/02/21 Unknown U Benzodiazepines Scrn Presumptive negative 08/02/21 Unknown Urine Cocaine Screen Presumptive negative 08/02/21 Unknown U Marijuana (THC) Screen Presumptive negative 08/02/21 Unknown Drugs of Abuse Note Disclamer 08/02/21 Unknown Microbiology: Microbiology 08/02/21 01:26 Peripheral/Venous Blood Culture - Preliminary NO GROWTH AFTER 48 HOURS 08/02/21 01:26 Peripheral/Venous Blood Culture - Preliminary NO GROWTH AFTER 48 HOURS Fuentes/IV: Voiding Method Toilet Active Medications - Current Medications Current Medications: Generic Name Dose Route Start Last Admin Trade Name Freq PRN Reason Stop Dose Admin Acetaminophen 650 mg 08/02/21 03:36 Acetaminophen 325 Mg Tab PO Q4H PRN Pain MILD(1-3)/Fever >100.5/NIETO Albuterol 2.5 mg 08/02/21 03:36 Albuterol 2.5 Mg/3 Ml Nebu IH Q3HRT PRN Shortness Of Breath Albuterol/Ipratropium 1 ampul 08/02/21 08:00 08/04/21 09:30 Ipratropium/Albuterol Sulfate 3 Ml Ampul.Neb IH 1 ampul Q6HRT LISA Administration Amlodipine Besylate 10 mg 08/03/21 10:00 08/04/21 11:49 Amlodipine 10 Mg Tab PO 10 mg QDAY LISA Administration Atorvastatin Calcium 20 mg 08/02/21 22:00 08/03/21 22:15 Atorvastatin 20 Mg Tab PO 20 mg QHS LISA Administration Doxazosin Mesylate 2 mg 08/03/21 10:00 08/04/21 11:49 Doxazosin 1 Mg Tab PO 2 mg QDAY LISA Administration Famotidine 20 mg 08/02/21 22:00 08/03/21 22:15 Famotidine 20 Mg Tab PO 20 mg QHS LISA Administration Fluticasone Propionate 50 mcg 08/03/21 10:00 08/04/21 12:40 Fluticasone Propionate Nasal Seney 16 Gm NS 50 mcg QDAY LISA Administration Heparin Sodium (Porcine) 5,000 unit 08/02/21 22:00 08/04/21 11:48 Heparin 5,000 Unit/1 Ml Vial SUB-Q 5,000 unit Q12HR LISA Administration Hydralazine HCl 10 mg 08/02/21 14:30 Hydralazine 20 Mg/1 Ml Inj IV Q4HR PRN Hypertension Sodium Chloride 1,000 mls @ 150 mls/hr 08/02/21 04:00 08/04/21 11:53 Nacl 0.9% 1000 Ml IV 150 mls/hr DIRECT LISA Administration Magnesium Hydroxide 30 ml 08/02/21 03:36 Magnesium Hydroxide (Mom) Oral Liqd Udc PO Q4H PRN Constipation Methylprednisolone Sodium Succinate 40 mg 08/02/21 06:00 08/04/21 05:40 Methylprednisolone Sod Succinate 40 Mg/1 Ml Inj IV 40 mg Q8HR LISA Administration Morphine Sulfate 2 mg 08/02/21 03:36 Morphine 2 Mg/1 Ml Inj IV Q4H PRN Pain, Moderate (4-6) Morphine Sulfate 4 mg 08/02/21 03:36 Morphine 4 Mg/1 Ml Inj IV Q4H PRN Pain , Severe (7-10) Ondansetron HCl 4 mg 08/02/21 03:36 Ondansetron 4 Mg/2 Ml Inj IV Q8H PRN Nausea And Vomiting Sodium Chloride 10 ml 08/02/21 10:00 08/04/21 11:50 Sodium Chloride 0.9% 10 Ml Flush Syringe IV 10 ml BID LISA Administration Sodium Chloride 10 ml 08/02/21 03:36 08/04/21 05:43 Sodium Chloride 0.9% 10 Ml Flush Syringe IV 10 ml PRN PRN Administration LINE FLUSH
--- NOTE | 2021-08-04 14:24 | Discharge Summary ---
Providers - Providers Date of Admission: 08/02/21 03:46 Date of discharge: 08/04/21 Attending physician: BALJIT LIND 08/02/21 06:38 Consult to Physician [CONS] Routine Comment: Consulting Provider: RAUL STOKES Physician Instructions: Reason For Exam: Asthma exacerbation, cardiopulmonary arrest 08/02/21 15:48 Consult to Physician [CONS] Routine Comment: Consulting Provider: JAYLON KIMBALL Physician Instructions: Reason For Exam: cardiac arrest Primary care physician: KRISHNA ALATORRE Hospitalization Condition: Fair Pertinent studies: Chest x-ray ;no acute cardiopulmonary abnormality noted Hospital course: --Acute on chronic bronchial asthma Current Visit: Yes Status: Acute Continue nebulizers, tapering dose of IV steroids Inhalation steroids, oxygen titrate O2 sats to more than 90% Patient is currently on 2 L of nasal cannula oxygen Home O2 evaluation prior to discharge --Leukocytosis; Probably secondary to steroid use Patient's blood cultures are negative Afebrile, chest x-ray no infiltrate --Acute kidney injury; Secondary to ATN Trending down Plenty oral fluids - Respiratory arrest Current Visit: Yes Status: Acute Possibly secondary to the COPD exacerbation. Patient was successfully resuscitated. Will monitor closely in T intensive care unit. -- Lactic acidosis Current Visit: Yes Status: Acute Possibly secondary to the cardiopulmonary arrest. Patient placed on IV fluid. Will monitor chemistry. -- Elevated creatine kinase/rhabdomyolysis Current Visit: Yes Status: Acute We will continue on IV fluid and monitor CK level. Patient had received 2 rounds of CPR prior to arrival in the emergency room today. --Rhabdomyolysis; Elevated CK, trending down Vigorous IV hydration, input output Plenty of oral fluids, monitor CK levels -DVT prophylaxis Current Visit: Yes Status: Acute Patient placed on subcutaneous heparin. Discussed in detail with patient's , patient's condition, treatment plan, consultants recommendation, discharge planning Probably in 1 to 2 days however Patient and requested discharge. Saying patient will follow with his private physicians Primary care physician, hot mill supervisor and chief pharmacist for further evaluation and management. Disposition: HOME / SELF CARE / HOMELESS Final Discharge Diagnosis (Prints w/discharge instructions): Acute on chronic bronchial asthma. Respiratory arrest/resolved. Rhabdomyolysis/elevated CK[trending down]. Advised plenty of oral fluids Time spent for discharge: 35 minutes Exam - Constitutional Vitals: Temp Pulse Resp BP Pulse Ox 98.1 F 77 20 162/88 95 08/04/21 12:00 08/04/21 12:00 08/04/21 08:12 08/04/21 11:59 08/04/21 13:54 Plan Activity: advance as tolerated, fall precautions Diet: other (Cardiac diet) Additional Instructions: Patient will follow with his primary care physician in 1 week. Also advised to follow-up with private hot mill supervisor 1 to 2 weeks. Private pulmonary/lung physician in 1 to 2 weeks. We checked for home oxygen, patient's O2 saturations more than 95%. No criteria for home O2. If you have worsening symptoms contact MD or go to the nearest emergency room as needed. Advised to check BMP, creatinine kinase in 2 days at PMDs office/urgent care center. Advised plenty oral fluids Follow up with: KRISHNA ALATORRE MD [Primary Care Provider] - 7 Days Prescriptions: Famotidine [Pepcid] 20 mg PO QHS #30 tablet predniSONE 10 mg PO .TAPER #39
== END 2021-08-04 16:00 | disposition home or self-care (01) | DRG 189 ==
LOC: ED 00:19 → IMCU 03:46 → CC1 05:18 → 4A 14:31
PROVIDERS: ADMIT Internal Medicine Geriatric Medicine; ATTEND Internal Medicine
PROC: 5A09357 Assistance with Respiratory Ventilation, Less than 24 Consecutive Hours, Continuous Positive Airway Pressure (ICD-10-PCS; 2021-08-02)
PROC: 4A033R1 Measurement of Arterial Saturation, Peripheral, Percutaneous Approach (ICD-10-PCS; principal; 2021-08-03)
DX: J96.01 Acute respiratory failure with hypoxia (principal); I46.9 Cardiac arrest, cause unspecified; N17.0 Acute kidney failure with tubular necrosis; J45.901 Unspecified asthma with (acute) exacerbation; M62.82 Rhabdomyolysis; J44.1 Chronic obstructive pulmonary disease with (acute) exacerbation; E87.2 Acidosis; E11.9 Type 2 diabetes mellitus without complications; I10 Essential (primary) hypertension; Z88.0 Allergy status to penicillin; Z79.899 Other long term (current) drug therapy; E66.9 Obesity, unspecified; Z68.28 Body mass index [BMI] 28.0-28.9, adult
CPT/HCPCS: 36415; 36600; 71045; 80048; 80307; 82140; 82550; 82553; 82803; 83880; 84145; 84484; 85007; 85025; 87040; 93005; 93306; 94640; 94644; 94760; G0378; Q0162; C8929; J1644; J1956; J2920; J7030; J7040